=== PATIENT | female | born 1960 | race Hispanic/Latino ===

== ENCOUNTER 2019-01-01 18:40 | Emergency (ER) | payer OTHER ==
--- NOTE | 2019-01-01 18:57 | Event Note ---
ED Screening Note ED Screening Note: pt presents for dizziness that began today states feels like the room spinning states it lasts for about 5 min no N/V/D +LOVE no CP never had this before no PMHx no daily meds no allergies to meds +smoker +drinker +marijuana no other drug use This initial assessment/diagnostic orders/clinical plan/treatment(s) is/are subject to change based on patients health status, clinical progression and re- assessment by fellow clinical providers in the ED. Further treatment and workup at subsequent clinical providers discretion. Patient/guardian urged not to elope from the ED as their condition may be serious if not clinically assessed and managed. Initial orders include: labs, UA, EKG, CT head
[2019-01-01 19:00] VITALS: BP 152/94
[2019-01-01] MEDS ORDERED: NACL 0.9% 1000 ML 1,000 ML IV ONE (20:04)
[2019-01-01] MEDS ORDERED: ANTIVERT PO ONE (20:05)
--- NOTE | 2019-01-01 20:10 | Cat Scan Report ---
CT BRAIN: 01/01/2019 INDICATION / CLINICAL INFORMATION: dizziness. COMPARISON: None available. FINDINGS: BRAIN/INTRACRANIAL STRUCTURES: Unenhanced CT images of the brain demonstrate no evidence of acute int racranial abnormality. Ventricles and sulci are at the upper limits of normal in size and shape for a patient of this age. There is no evidence of acute ischemic injury, hemorrhage, or mass. There are no abnormal extra-axial fluid collections. Small focal area of encephalomalacia is present in the right dorsal cerebellar hemisphere, suggestive of remote ischemic injury. EXTRACRANIAL STRUCTURES: Unremarkable. IMPRESSION: No acute abnormality. All CT scans at this location are performed using dose reduction to ALARA by means of automated expos ure control. Signer Name: Robin Anaya MD Signed: 01/01/2019 8:05 PM Workstation Name: [id number]
[2019-01-01 20:19] LABS: Eosinophils # (Auto) 0.1 K/mm3 (0.0-0.4); Eosinophils % (Auto) 1.8 % (0.0-4.3); Hematocrit 38.3 % (30.3-42.9); Hemoglobin 12.8 gm/dl (10.1-14.3); Lymphocytes # (Auto) 1.6 K/mm3 (1.2-5.4); Lymphocytes % (Auto) 32.6 % (13.4-35.0); Mean Corpuscular HGB Conc 33 % (30-34); Mean Corpuscular Volume 87 fl (79-97); Monocytes # (Auto) 0.6 K/mm3 (0.0-0.8); Monocytes % (Auto) 12.8 % (0.0-7.3); Platelet Count 181 K/mm3 (140-440); Red Cell Distribution Width 14.3 % (13.2-15.2)
[2019-01-01 20:33] LABS: Alanine Aminotransferase 21 units/L (7-56); Albumin 4.6 g/dL (3.9-5); BUN/Creatinine Ratio 12; Blood Urea Nitrogen 11 mg/dL (7-17); Hemolysis Index 10
[2019-01-01 20:42] LABS: Bacteria,Urine 1+ /HPF (Negative); Bilirubin,Urine NEG (Negative); Blood,Urine NEG (Negative); Color,Urine Yellow (Yellow); Mucus,Urine FEW /HPF; Protein,Urine <15 mg/dL mg/dL (Negative); Urobilinogen,Urine < 2.0 mg/dL (<2.0)
--- NOTE | 2019-01-01 21:23 | Emergency Department Report ---
ED Dizziness HPI - General Chief Complaint: Dizziness Stated Complaint: DIZZY Time Seen by Provider: 01/01/19 18:55 Source: patient Mode of arrival: Ambulatory Limitations: No Limitations - History of Present Illness Initial Comments: Patient is a 58-year-old female with no past medical history presents to the ED with complaint of acute onset persistent intermittent lightheadedness and dizziness for the last 12 hours. 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 Patient states that the dizziness and lightheadedness resolved with rest. Patient denies syncope, seizures, headache, nausea, vomiting, chest pain, shortness of breath, abdominal pain, palpitations, change in vision, neck pain, fever or chills and cough or abdominal pain. Patient says that she has had this episode in the past but not as frequent as it happened today. MD Complaint: dizziness, lightheadedness, near syncope -: Sudden, hour(s) (12) Timing: sudden onset, intermittent Description: sense of movement, "room spinning", lightheadedness History of Same: Yes History of Trauma: No Severity: moderate Improves With: rest Worsens With: movement, exertion Associated Symptoms: denies other symptoms. denies: ataxia, chest pain, confu promise, cough, diaphoresis, fever/chills, loss of appetite, malaise, rash, seizure, shortness of breath, syncope, weakness - Related Data Previous Rx's Medication Instructions Recorded Last Taken Type Meclizine [Antivert] 25 mg PO Q8H PRN #30 tablet 01/02/19 Unknown Rx Allergies Allergy/AdvReac Type Severity Reaction Status Date / Time No Known Allergies Allergy Unverified 01/01/19 18:44 ED Review of Systems ROS: Stated complaint: DIZZY Other details as noted in HPI Constitutional: denies: chills, fever Eyes: denies: eye pain, eye discharge, vision change ENT: denies: ear pain, throat pain, congestion Respiratory: denies: cough, shortness of breath, wheezing Cardiovascular: denies: chest pain, palpitations, syncope, paroxysmal nocturnal dyspnea Endocrine: no symptoms reported. denies: excessive sweating, flushing, intolerance to cold, increased hunger, unexplained weight gain Gastrointestinal: denies: abdominal pain, nausea, diarrhea Genitourinary: denies: urgency, dysuria, discharge Musculoskeletal: denies: back pain, joint swelling, arthralgia Skin: denies: rash, lesions Neurological: other (dizziness). denies: headache, weakness, paresthesias Psychiatric: denies: anxiety, depression Hematological/Lymphatic: denies: easy bleeding, easy bruising ED Past Medical Hx - Past Medical History Previous Medical History?: No - Surgical History Past Surgical History?: No - Social History Smoking Status: Current Every Day Smoker Substance Use Type: Marijuana - Medications Home Medications: Home Medications Medication Instructions Recorded Confirmed Last Taken Type Meclizine [Antivert] 25 mg PO Q8H PRN #30 tablet 01/02/19 Unknown Rx ED Physical Exam - General Limitations: No Limitations General appearance: alert, in no apparent distress - Head Head exam: Present: atraumatic, normocephalic, normal inspection - Eye Eye exam: Present: normal appearance, PERRL, EOMI. Absent: nystagmus Pupils: Present: normal accommodation - ENT ENT exam: Present: normal exam, normal orophraynx, mucous membranes moist, TM's normal bilaterally, normal external ear exam - Neck Neck exam: Present: normal inspection, full ROM - Respiratory Respiratory exam: Present: normal lung sounds bilaterally. Absent: respiratory distress, wheezes, rales, rhonchi, chest wall tenderness, accessory muscle use, decreased breath sounds - Cardiovascular Cardiovascular Exam: Present: regular rate, normal rhythm, normal heart sounds. Absent: systolic murmur, diastolic murmur, rubs, gallop - GI/Abdominal GI/Abdominal exam: Present: soft, normal bowel sounds. Absent: distended, tenderness, guarding, rebound, hyperactive bowel sounds, hypoactive bowel sounds, organomegaly - Extremities Exam Extremities exam: Present: normal inspection, full ROM, normal capillary refill - Back Exam Back exam: Present: normal inspection, full ROM. Absent: CVA tenderness (L), muscle spasm, paraspinal tenderness - Neurological Exam Neurological exam: Present: alert, oriented X3, CN II-XII intact, normal gait, reflexes normal - Psychiatric Psychiatric exam: Present: normal affect, normal mood - Skin Skin exam: Present: warm, dry, intact, normal color. Absent: rash ED Course Vital Signs 01/01/19 18:58 Temperature 97.4 F L Pulse Rate 66 Respiratory 18 Rate Blood Pressure 152/94 O2 Sat by Pulse 99 Oximetry - Reevaluation(s) Reevaluation #1: 01/01/19 22:49 Patient is alert and oriented 3 and is not in any distress. Head CT scan without contrast shows a small focal area of encephalomalacia in the right dorsal cerebellar hemisphere suggestive of remote ischemic injury. There is however no acute ischemic injury, hemorrhage or mass. There are no abnormal extra-axial fluid collections. EKG shows normal sinus rhythm with ventricular rate of 78 bpm and probable right ventricular hypertrophy but no ST or T-wave abnormalities or pathological Q waves. Lab test results were reviewed and are unremarkable. Patient was treated in the ED with normal saline 1 L IV bolus and meclizine 25 mg by mouth 1. On reevaluation, the patient has not had any dizziness in the ED. Patient was discharged home on medications and advised to follow-up with her primary care physician in 5-7 days for reevaluation, or return to the ED immediately if symptoms get worse. 01/02/19 06:40 ED Medical Decision Making - Lab Data Result diagrams: 01/01/19 19:52 01/01/19 19:52 - EKG Data EKG shows normal: sinus rhythm Rate: normal - EKG Data Interpretation: normal EKG - Radiology Data Radiology results: report reviewed, image reviewed Head CT scan w/o contrast: No acute intracranial abnormalities or hemorrhage - Medical Decision Making Patient is alert and oriented 3 and is not in any distress. Head CT scan without contrast shows a small focal area of encephalomalacia in the right dorsal cerebellar hemisphere suggestive of remote ischemic injury. There is however no acute ischemic injury, hemorrhage or mass. There are no abnormal extra-axial fluid collections. EKG shows normal sinus rhythm with ventricular rate of 78 bpm and probable right ventricular hypertrophy but no ST or T-wave abnormalities or pathological Q waves. Lab test results were reviewed and are unremarkable. Patient was treated in the ED with normal saline 1 L IV bolus and meclizine 25 mg by mouth 1. On reevaluation, the patient has not had any dizziness in the ED. Patient was discharged home on medications and advised to follow-up with her primary care physician in 5-7 days for reevaluation, or return to the ED immediately if symptoms get worse. - Differential Diagnosis Dizziness, Lightheadedness Critical care attestation.: If time is entered above; I have spent that time in minutes in the direct care of this critically ill patient, excluding procedure time. ED Disposition Clinical Impression: Dizzinesses Disposition: DC-01 TO HOME OR SELFCARE Is pt being admited?: No Does the pt Need Aspirin: No Condition: Stable Instructions: Near Syncope (ED), Dizziness (ED) Additional Instructions: Take medication with food, drink plenty of fluids and follow up with the primary care physician in 7-10 days for reevaluation. Return to the ED immediately if symptoms get worse. Prescriptions: Meclizine [Antivert] 25 mg PO Q8H PRN #30 tablet PRN Reason: Vertigo Referrals: JUAN PIPER MD [Primary Care Provider] - 3-5 Days Forms: Work/School Release Form(ED) Time of Disposition: 00:19 Print Language: MALAGASY
== END 2019-01-02 00:33 | disposition home or self-care (01) ==
LOC: ED 18:40
DX: R42 Dizziness and giddiness (principal); F17.200 Nicotine dependence, unspecified, uncomplicated; F12.10 Cannabis abuse, uncomplicated
CPT/HCPCS: 36415; 70450; 80053; 81001; 83735; 84100; 84484; 85025; 93005; 93010; 96360; 99284; J7030